=== PATIENT | male | born 1995 | race Caucasian/White ===

== ENCOUNTER 2021-03-10 10:49 | Emergency (ER) | payer OTHER ==
[~2021-03-10] VITALS: Ht 180.3 cm; Wt 95.3 kg
[~2021-03-10 10:49] MED LIST: AUGMENTIN 875 M1 TAB PO; HYDROCODONE BIT1 T11 PO; MOTRIN400 MG PO; MOTRIN800 MG PO; NKHM PO; PERCOCET 325 MG1 TA2 PO
[2021-03-10 11:01] VITALS: BP 152/99
[2021-03-10] MEDS ORDERED: ACETAMINOPHEN500 M4 PO (11:07)
[2021-03-10] MEDS ORDERED: IBUPROFEN600 MG PO (11:07)
[2021-03-10 11:53] LABS: BUN 10 mg/dl (7-24); CHLORIDE 104 mmol/L (98-107); CREATININE 0.79 mg/dL (0.70-1.30); SODIUM 138 mmol/L (136-145)
== END 2021-03-10 12:10 | disposition home or self-care (01) ==
LOC: ED 10:49
PROVIDERS: Emergency Medicine
DX: U07.1 COVID-19 (principal); J45.909 Unspecified asthma, uncomplicated; Z79.899 Other long term (current) drug therapy

== ENCOUNTER 2023-02-06 12:50 | Emergency (ER) | payer MEDICARE ==
[~2023-02-06] VITALS: Ht 180.3 cm; Wt 97.5 kg
[~2023-02-06 12:50] MED LIST changes: +ACETAMINOPHEN500 M4 PO; +IBUPROFEN600 MG PO
[2023-02-06 13:17] VITALS: BP 132/77
== END 2023-02-06 15:12 | disposition home or self-care (01) ==
LOC: ED 12:50
DX: J06.9 Acute upper respiratory infection, unspecified (principal); J45.909 Unspecified asthma, uncomplicated; Z88.8 Allergy status to other drugs, medicaments and biological substances; Z98.890 Other specified postprocedural states; Z87.891 Personal history of nicotine dependence; Z20.822 Contact with and (suspected) exposure to COVID-19